=== PATIENT | male | born 1970 | race Caucasian/White ===

== ENCOUNTER 2017-09-16 19:38 | Emergency (ER) | payer BC ==
[2017-09-16] MEDS ORDERED: Fluorescein 1 MG Ophth Strip EYELF ONE (19:49)
[2017-09-16] MEDS ORDERED: Tetracaine HCl/PF 0.5% 4 ML Bottle EYELF ONE (19:49)
--- NOTE | 2017-09-16 20:21 | EDM.PDOC ---
ED HPI GENERAL MEDICAL PROBLEM - General Chief Complaint: Eye Problems Stated Complaint: SOMETHING STUCK IN EYEBALL Time Seen by Provider: 09/16/17 19:49 Source of Information: Reports: Patient, Family, RN, RN Notes Reviewed History Limitations: Reports: No Limitations - History of Present Illness INITIAL COMMENTS - FREE TEXT/NARRATIVE: Patient presents to the ED at [facility] complaining of a FB in the left eye. Patient states he was working with metal when he felt a piece get lodged into the left eyeball. Patient did flush with water and tried to removed it himself with out any success. This is not a work related injury. Onset: Today Onset Date: 09/16/17 ED ROS GENERAL - Review of Systems Review Of Systems: See Below Constitutional: Denies: Fever, Chills HEENT: Reports: Eye Pain. Denies: Vision Change Respiratory: Denies: Shortness of Breath, Cough Cardiovascular: Denies: Chest Pain, Palpitations Skin: Reports: No Symptoms Neurological: Reports: No Symptoms ED EXAM GENERAL W FULL EYE - Physical Exam Exam: See Below Exam Limited By: No Limitations General Appearance: Alert, No Apparent Distress Eye Exam: Left Eye: Foreign Body, Bilateral Eye: EOMI, PERRL Eyelids: Bilateral: Normal Appearance Conjunctiva & Sclera: Right: Normal Appearance, Left: Foreign Body Cornea Exam: Right: Normal Appearance, Left: Corneal Abrasion Extraocular Movements: Bilateral: Intact Pupils: Normal Accommodation Pupillary Size: Bilateral: 3 mm Pupillary Reaction: Bilateral: Brisk Respiratory/Chest: No Respiratory Distress, Lungs Clear, Normal Breath Sounds Cardiovascular: Normal Peripheral Pulses, Regular Rate, Rhythm Neurological: Alert, Oriented Skin Exam: Warm, Dry, Intact, Normal Color ED EYE w/ Add Procedure - Eye Procedure Alcaine Drops Administered: Yes Eye FB Removal: Removal w/ Cotton Swab Eye Irrigated w/ Saline (ccs): 15 Progress: Left eye anesthetized with Tetracaine drops. FB at 3 o'clock position. Removed with cotton tip. Also corneal abrasion. FB removed successfully. Tolerated well. No complications. Course - Orders/Labs/Meds Meds: Medications Discontinued Medications Generic Name Dose Route Start Last Admin Trade Name Freq PRN Reason Stop Dose Admin Fluorescein Sodium 1 mg 09/16/17 19:49 09/16/17 19:59 Ful-Marilu EYELF 09/16/17 19:50 1 mg ONETIME ONE Administration Tetracaine HCl 1 ml 09/16/17 19:49 09/16/17 19:54 Tetracaine 0.5% Steri-Unit Elizabeth EYELF 09/16/17 19:50 2 drop ONETIME ONE Administration Departure - Departure Time of Disposition: 20:21 Disposition: Home, Self-Care 01 Condition: Good Clinical Impression: Foreign body in eyeball, left Qualifiers: Encounter type: initial encounter Qualified Code(s): S05.52XA - Penetrating wound with foreign body of left eyeball, initial encounter Corneal abrasion, left Qualifiers: Encounter type: initial encounter Qualified Code(s): S05.02XA - Injury of conjunctiva and corneal abrasion without foreign body, left eye, initial encounter - Discharge Information *PRESCRIPTION DRUG MONITORING PROGRAM REVIEWED*: Not Applicable *COPY OF PRESCRIPTION DRUG MONITORING REPORT IN PATIENT SHARON: Not Applicable Instructions: Corneal Abrasion, Eye Foreign Body Forms: ED Department Discharge Additional Instructions: 1. Stay well hydrated and rest 2. Do not rub the left eye 3. Use eye drop for the full coarse so no infection starts 4. See your eye doctor as symptoms warrant - Problem List Review Problem List Initiated/Reviewed/Updated: Yes - Assessment/Plan Assessment:: FB Left eye Corneal Abrasion Plan: FB removed. Patient will be started on eye drops for corneal abrasion.
[2017-09-16] MEDS ORDERED: Take Home: Hydrocortisone/Neomycin/Polymyxin B Otic Susp 10 ML, 1 Btle Pac SCH (20:36)
[2017-09-16] MEDS ORDERED: Take Home: Gentamicin 0.3% Ophth Soln 5 ML, 1 Bottle Pack EYELF ONE (20:39)
[2017-09-17] MEDS ORDERED: Take Home: Hydrocortisone/Neomycin/Polymyxin B Otic Susp 10 ML, 1 Btle Pac SCH (08:00)
== END 2017-09-16 20:49 | disposition home or self-care (01) ==
LOC: VM.ED 19:38
DX: T15.12XA Foreign body in conjunctival sac, left eye, initial encounter (principal); W45.8XXA Other foreign body or object entering through skin, initial encounter
CPT/HCPCS: 65205; 99283; A9270